=== PATIENT | female | born 1995 | race Caucasian/White ===

== ENCOUNTER 2022-10-15 13:31 | Emergency (ER) | payer MEDICAID ==
[~2022-10-15] VITALS: Ht 154.9 cm; Wt 61.2 kg
[~2022-10-15 13:31] MED LIST: IBUP-1969
[2022-10-15 13:47] VITALS: BP_SYST 104
--- NOTE | 2022-10-15 13:54 | NUR ---
Patient to ER bed 4 to gown for evaluation. Side rails up. Report given to STEVE KIRK
--- NOTE | 2022-10-15 14:25 | NUR ---
patient presents to er c/o left shoulder pain, no injury. [facility] good.
--- NOTE | 2022-10-15 15:30 | NUR ---
ER at bedside examining patient.
[2022-10-15] MEDS ORDERED: NAPR-690 PO (15:54)
[2022-10-15 15:55] VITALS: BP_SYST 112
--- NOTE | 2022-10-15 15:55 | NUR ---
Patient given written and verbal discharge instructions and verbalizes understanding. ER MD discussed with patient the results and treatment provided. Patient in stable condition. ID arm band removed. Rx of NAPROXEN given. Patient educated on pain management and to follow up with PMD. Pain Scale 0/10 Opportunity for questions provided and answered. Medication side effect fact sheet provided.
== END 2022-10-15 15:55 | disposition home or self-care (01) ==
LOC: SED 13:31
DX: S43.402A Unspecified sprain of left shoulder joint, initial encounter (principal); Z79.899 Other long term (current) drug therapy; V48.2XXA Person on outside of car injured in noncollision transport accident in nontraffic accident, initial encounter; Y93.89 Activity, other specified; Y92.89 Other specified places as the place of occurrence of the external cause; Y99.8 Other external cause status
CPT/HCPCS: 73030; 99283

== ENCOUNTER 2023-12-03 22:22 | Emergency (ER) | payer SELFPAY ==
[~2023-12-03] VITALS: Ht 154.9 cm; Wt 63.5 kg
[~2023-12-03 22:22] MED LIST changes: +NAPR-690 PO
[2023-12-03 22:44] VITALS: BP_SYST 116; PULSE 74; RESP 16; TEMP 97.5; O2SAT 99
[2023-12-04 00:50] LABS: BILIRUBIN,URINE NEGATIVE (NEGATIVE); BLOOD, URINE NEGATIVE (NEGATIVE); COLOR,URINE YELLOW (YELLOW); GLUCOSE,URINE NEGATIVE (NEGATIVE); KETONES,URINE NEGATIVE (NEGATIVE); LEUKOCYTE ESTERASE ,URINE TRACE (NEGATIVE); NITRITE, URINE NEGATIVE (NEGATIVE); PROTEIN URINE NEGATIVE (NEGATIVE)
[2023-12-04 01:22] LABS: CLARITY/URINE SLIGHTLY CLOUDY (CLEAR)
[2023-12-04 01:23] LABS: BACTERIA,URINE FEW /HPF (None Seen); RBC,URINE 0-3 /HPF (0-3)
[2023-12-04 01:40] VITALS: BP_SYST 116; PULSE 74; RESP 16; TEMP 97.5; O2SAT 99
[2023-12-04] MEDS ORDERED: DIF100 PO (01:44)
[2023-12-04] MEDS ORDERED: CIPR500T5 PO (01:44)
== END 2023-12-04 01:40 | disposition home or self-care (01) ==
LOC: SED 22:22
DX: N39.0 Urinary tract infection, site not specified (principal); B37.31 Acute candidiasis of vulva and vagina; R10.2 Pelvic and perineal pain; R30.9 Painful micturition, unspecified; Z79.899 Other long term (current) drug therapy
CPT/HCPCS: 81000; 81001; 81015; 81025; 87086; 87210; 99283

== ENCOUNTER 2024-01-12 01:20 | Emergency (ER) | payer MEDICAID ==
[~2024-01-12] VITALS: Ht 157.5 cm; Wt 65.8 kg
[~2024-01-12 01:20] MED LIST changes: +CIPR500T5 PO; +DIF100 PO
[2024-01-12 01:25] VITALS: BP_SYST 124; PULSE 106; RESP 16; TEMP 97.8; O2SAT 98
[2024-01-12 02:01] LABS: BILIRUBIN,URINE 1+ (NEGATIVE); BLOOD, URINE 1+ (NEGATIVE); CLARITY/URINE CLEAR (CLEAR); COLOR,URINE YELLOW (YELLOW); GLUCOSE,URINE NEGATIVE (NEGATIVE); KETONES,URINE 1+ (NEGATIVE); LEUKOCYTE ESTERASE ,URINE 1+ (NEGATIVE); NITRITE, URINE NEGATIVE (NEGATIVE); PROTEIN URINE NEGATIVE (NEGATIVE)
[2024-01-12 02:01] LABS: BASOPHILS # (AUTO) 0.1 K/uL (0.0-0.2); BASOPHILS % (AUTO) 1.1 % (0.0-2.0); EOSINOPHILS % (AUTO) 0.6 % (0.0-4.0); HEMATOCRIT 32.9 % (36-48); HEMOGLOBIN 11.3 g/dL (12.0-16.0); LYMPHOCYTES % (AUTO) 14.8 % (20.5-51.5); MEAN CORPUSCULAR HEMOGLOBIN 30 pg (27-31); MEAN CORPUSCULAR HGB CONC 34 % (32-36); MEAN CORPUSCULAR VOLUME 86 fL (79.0-98.0); MONOCYTES # (AUTO) 0.9 K/uL (0.0-1.0); MONOCYTES % (AUTO) 13.3 % (1.7-9.3); NEUTROPHILS # (AUTO) 4.9 K/uL (1.8-7.7); NEUTROPHILS % (AUTO) 70.2 % (40.0-70.0); PLATELET COUNT (AUTO) 227 K/uL (130-430); RED BLOOD CELL COUNT(AUTO) 3.82 MIL/uL (4.2-6.2)
[2024-01-12 02:15] LABS: CALCIUM 8.5 mg/dL (8.4-11.0); CREATININE 0.68 mg/dL (0.55-1.30); POTASSIUM 3.4 mmol/L (3.5-5.1)
[2024-01-12] MEDS: NACL 0.9% 1,000 ML IV ONE (02:17)
[2024-01-12 02:19] LABS: ALBUMIN 3.6 g/dL (3.4-4.8); BILIRUBIN,DIRECT 0.1 mg/dL (0.0-0.3); TOTAL BILIRUBIN 0.3 mg/dL (0.0-1.0); TOTAL PROTEIN, SERUM 7.2 g/dL (6.4-8.3)
[2024-01-12] MEDS: KETOROLAC TROMETHAMINE 30 MG VIAL IVP ONE (02:24)
[2024-01-12] MEDS: ONDANSETRON HCL 4 MG/2 ML VIAL IVP ONE (02:26)
[2024-01-12 02:43] LABS: BACTERIA,URINE RARE /HPF (None Seen)
[2024-01-12] MEDS ORDERED: FLUC150T PO (03:11)
[2024-01-12] MEDS ORDERED: SULF1TAB48 PO (03:11)
[2024-01-12] MEDS ORDERED: NAPR-1172 PO (03:12)
[2024-01-12] MEDS: cefTRIAXone 1 GM IVPB PREMIX 50 ML IV ONE (03:39)
[2024-01-12 03:41] VITALS: BP_SYST 91; PULSE 82; RESP 16; TEMP 97.7; O2SAT 97
== END 2024-01-12 04:34 | disposition home or self-care (01) ==
LOC: SED 01:20
DX: N39.0 Urinary tract infection, site not specified (principal); B37.31 Acute candidiasis of vulva and vagina; R10.30 Lower abdominal pain, unspecified; R39.15 Urgency of urination; Z79.899 Other long term (current) drug therapy
CPT/HCPCS: 99285; 74176; 96365; 96375; 96361; 80076; 80048; 81000; 81001; 83690; 85025; 87210; 36415; 81025; 87491; 81015; J0696; J1885; J2405; J7030

== ENCOUNTER 2024-04-21 18:33 | Emergency (ER) | payer MEDICAID ==
[~2024-04-21] VITALS: Ht 154.9 cm; Wt 65.8 kg
[~2024-04-21 18:33] MED LIST changes: +FLUC150T PO; +NAPR-1172 PO; +SULF1TAB48 PO
[2024-04-21 18:36] VITALS: BP_SYST 124; PULSE 86; RESP 17; TEMP 97.9; O2SAT 97
[2024-04-21 20:25] VITALS: BP_SYST 121; PULSE 81; RESP 18; TEMP 98; O2SAT 98
== END 2024-04-21 20:25 | disposition home or self-care (01) ==
LOC: SED 18:33
DX: S00.03XA Contusion of scalp, initial encounter (principal); M54.2 Cervicalgia; Z79.899 Other long term (current) drug therapy; Z79.2 Long term (current) use of antibiotics; Y04.2XXA Assault by strike against or bumped into by another person, initial encounter; Y93.89 Activity, other specified; Y92.89 Other specified places as the place of occurrence of the external cause; Y99.8 Other external cause status
CPT/HCPCS: 70450-TC; 72125-TC; 99284